=== PATIENT | male | born 1990 | race Caucasian/White ===

== ENCOUNTER 2017-03-10 22:02 | Emergency (ER) | payer SELFPAY ==
[~2017-03-10] VITALS: Ht 182.9 cm; Wt 137.0 kg
--- OUTSIDE RECORDS SUMMARY | 2017-03-10 22:31 | External Medical Summary Rpt ---
Demographics Home Phone Preferred Language Tamazight Marital Status Unknown Judaism Affiliation Unknown Race Unknown Ethnic Group Unknown Author Author , Organization [employer] Address Unknown Phone Unavailable Care Team Providers Care Inspector Crystal Name Role Phone BRANDSER JIMENA, Unavailable Unavailable BRANDSER JIMENA [facility] Unavailable Unavailable PHYSICIANS, [facility] DAVREN JIMENA, DAVREN Unavailable Unavailable JIMENA EMERY THEE, EMERY THEE Unavailable Unavailable [facility] & Unavailable Unavailable ASTHMA, [facility] ASTHMA FAVIER MICHEL, FAVIER Unavailable Unavailable MICHEL FRANXMAN VIDYA, Unavailable Unavailable FRANXMAN VIDYA HIRA JESSE, Unavailable Unavailable HIRA JESSE BRIDGETTE JUDD, BRIDGETTE Unavailable Unavailable JUDD HERFEL DARREL, HERFEL Unavailable Unavailable DARREL KLEIMEYER SAMANTHA, Unavailable Unavailable KLEIMEYER SAMANTHA KOSCIK KATTY, KOSCIK Unavailable Unavailable KATTY FRANCI TUS, FRANCI Unavailable Unavailable TUS WEN BRA, WEN Unavailable Unavailable BRA RAFA ANA CRISTINA, RAFA Unavailable Unavailable ANA CRISTINA ANJU M, ANJU M Unavailable Unavailable [facility] Unavailable Unavailable [facility], [facility] SHREE ZACHERY, Unavailable Unavailable SHREE ZACHERY [facility] Unavailable Unavailable [facility] Unavailable Unavailable PHYSICIANS, [facility] MAGDALENA MCELROY, MAGDALENA Unavailable Unavailable NAVI WELLS SEA, WELLS SEA Unavailable Unavailable Purpose Continuity of Care Document - 11-14-2014 through 2016 Problems Code Diagnosis DOS Provider Status [id number] EFFUSION 03-15-2016 [facility] RIGHT KNEE [facility] [id number] EFFUSION 03-15-2016 [facility] LEFT KNEE [facility] [id number] PAIN IN 03-15-2016 [facility] H49021 PAIN IN 03-15-2016 [facility] LEFT KNEE [facility] K80190 UNSPECIFIED 11-27-2015 ASTHMA SAVANNAH UNCOMPLICAT FT [place] ED K219 GASTRO-ESOP 11-27-2015 [facility] REFLUX SAVANNAH DISEASE FT [place] WITHOUT ESOPHAGITIS R90264 PAIN IN 11-27-2015 RIGHT [place] SHOULDER FT [facility] [id number] SPRAIN RT 11-27-2015 ROTATOR [place] CUFF FT [place] CAPSULE INITIAL ENCOUNTER H6981 OTHER SPEC 11-08-2015 ST DISORDERS SAV[facility]NA[facility] EUSTACHIAN PHYSICIANS TUBE RT EAR H938X1 OTHER 11-08-2015 ST SPECIFIED [facility] DISORDERS PHYSICIANS OF RIGHT EAR H748X1 OTHER SPEC 10-18-2015 [facility] DISORDERS EMERGENCY OF RT PHYSICIANS MIDDLE EAR & MASTOID J301 ALLERGIC 10-03-2015 FAMILY RHINITIS ALLERGY & DUE TO ASTHMA POLLEN J3089 OTHER 10-03-2015 FAMILY ALLERGIC ALLERGY & RHINITIS ASTHMA J4540 MODERATE 09-27-2015 FAMILY PERSISTENT ALLERGY & ASTHMA ASTHMA UNCOMPLICAT ED [id number] ADVERS EFF 09-27-2015 FAMILY OTH RX MEDS ALLERGY & BIO ASTHMA SUBSTANCES INIT ENC J029 ACUTE 09-21-2015 PHARYNGITIS [facility]ICIANS UNSPECIFIED J069 ACUTE UPPER 09-21-[address] [facility] RESPIRATORY PHYSICIANS INFECTION UNSPECIFIED 64846 ASTHMA, 06-05-2015 ST UNSPECIFIED SAVANNAH , FT [facility] UNSPECIFIED STATUS 67985 ESOPHAGEAL 06-05-2015 ST REFLUX SAVANNAH FT [place] 14970 PAIN IN 06-05-2015 JOINT SAVANNAH PELVIC FT [place] REGION AND THIGH V5869 LONG-TERM 06-05-2015 ST (CURRENT) SAVANNA[facility] USE OF FT [place] OTHER MEDICATIONS 4659 ACUTE URIS 05-23-2015 [facility] OF [facility] UNSPECIFIED OF [facility] SITE 7862 COUGH 05-23-2015 ST SAVANNAH FT [place] 7821 RASH AND 05-10-2015 ST OTHER SAV[facility]NA[facility] NONSPECIFIC FT [place] SKIN ERUPTION 44768 UNSPECIFIED 03-24-2015 ST SAVANNAH CONSTIPATIO FT [place] N 07194 ABDOMINAL 03-24-2015 RADIOLOGY PAIN, ASSOCIATES UNSPECIFIED [facility] SITE 56299 ABDOMINAL 03-24-2015 PAIN, SAVANNAH EPIGASTRIC FT [facility] 8830 OPEN WOUND 03-05-2015 ST FINGER SAVANNAH WITHOUT FT [place] MENTION COMPLICATIO N 5589 OTH&UNSPEC 03-02-2015 NONINFECTIO SAVANNAH US FT [place] GASTROENTER ITIS&COLITI S 76655 NAUSEA WITH 03-02-2015 [facility] VOMITING [facility] 00356 DIARRHEA 03-02-2015 [facility] 4739 UNSPECIFIED 01-10-2015 [facility] SINUSITIS EMERGENCY PHYSICIANS 490 BRONCHITIS 01-10-2015 [facility] NOT EMERGENCY SPECIFIED PHYSICIANS ACUTE OR CHRONIC 26804 PAIN IN 11-24-2014 ST JOINT, SAVANNAH LOWER LEG PHYSICIANS V2509 OT GENERAL 11-24-2014 [facility] CNSL&ADVICE PHYSICIANS CONTRACEPT MANAGEMENT 8449 SPRAIN&STRA 11-14-2014 ST IN OF SAVANNAH UNSPECIFIED FT [facility] SITE OF KNEE&LEG 68851 UNSPECIFIED 11-14-2014 SITE OF SAVANNAH ANKLE FT [facility] SPRAIN AND STRAIN J40 Bronchitis, not specified as acute or chronic M25.511 Pain in right shoulder Immunization Name Date Route CVX Reacti Commen Provid Is Given on t er Refuse d TDAP No VACCIN 2014 ELIZAB E 7 ETH FT YRS/> IM [place] Procedures Procedure DOS Code Location Performer Comment RADIOLOGI 59876 RADIOLOGY RAFA Libertad EXAM 6 ANA CRISTINA KNEE ASSOCIATE COMPLETE S OF NOTH 4/MORE VIEWS INJECTION J1885 [facility] 6 SAVANNAH BABINTH KETOROLAC FT FT [facility] TROMETHAM INE PER 15 MG THERAPEUT 18436 [facility] IC 6 [place] SAVANNAH PROPHYLAC FT FT TIC/DX [facility] INJECTION SUBQ/IM PREPJ& 04364 FAMILY CORTES ALLERGEN 5 ALLERGY & VIDYA IMMUNOTHE ASTHMA RAPY 1/PATTERN ATTENDANT ANTIGEN NITRIC 68534 FAMILY CORTES OXIDE 5 ALLERGY & VIDYA ASTHMA GAS DETERMINA TION DEMO&/CECILIA 69049 FAMILY CORTES L OF PT 5 ALLERGY & VIDYA UTILIZ ASTHMA AERSL GEN/NEB/I NHLR/IP PERCUTANE 97443 FAMILY CORTES OUS TESTS 5 ALLERGY & VIDYA ASTHMA W/ALLERGE DREW EXTRACTS BRNCDILAT 62739 FAMILY CORTES RSPSE 5 ALLERGY & VIDYA SPMTRY ASTHMA PRE&POST- BRNCDILAT ADMN SPACR A4627 FAMILY CORTES BAG/RESRV 5 ALLERGY & VIDYA OR W/WO ASTHMA MASK W/METRD DOSE INHAL RADIOLOGI 66857 RADIOLOGY SEAN C 5 JIMENA EXAMINATI ASSOCIATE ON PELVIS S OF NOTH 1/2 VIEWS RADEX HIP 28502 RADIOLOGY YAREDSER 5 JIMENA UNILATERA ASSOCIATE L S OF NOTH COMPLETE MINIMUM 2 VIEWS RADIOLOGI 11387 RADIOLOGY FRANCI C EXAM 5 TUS CHEST 2 ASSOCIATE VIEWS S [facility] FRONTAL&L ATERAL HEPATIC 31552 [facility] FUNCTION 5 SAVANNAH SAVANNAH PANEL FT FT [facility] PATIÑO URNLS DIP 04222 [facility] 5 SAVANNAH SAVANNAH STICK/TAB FT FT LET [facility] PATIÑO REAGENT AUTO MICROSCOP Y BLOOD 50676 [facility] COUNT 5 SAVANNAH SAVANNAH COMPLETE FT FT AUTOMATED [place] [address] [facility] LIPASE 5 SAVANNAH SAVANNAH FT FT [facility] PATIÑO RADEX ABD 44843 [facility] [place] [facility] COMPL 5 AQT ABD ASSOCIATE W/S/E/D S [facility] VIEWS 1 VIEW CH BASIC 74355 [facility] METABOLIC 5 SAVANNAH SAVANNAH PANEL FT FT CALCIUM [facility] TOTAL COLLECTIO 35762 [facility] N VENOUS 5 SAVANNAHRYANNE GOMEZBETH BLOOD FT FT VENIPUNCT [facility] PATIÑO URE TDAP 52005 [facility] VACCINE 7 5 SAVANNAH SAVANNAH YRS/> IM FT FT [facility] PATIÑO INJECTION J1980 [facility] 5 SAVANNAH SAVANNAH HYOSCYAMI FT FT NE [facility] HAROON SULFATE [place] [address] [place] [address] RADIOLOGY [place] ABDOMEN & 5 BRA PELVIS ASSOCIATE W/CONTRAS S OF [facility] T MATERIAL RADIOLOGI 35126 [facility]Y [facility] C EXAM 5 SAMANTHA CHEST 2 ASSOCIATE VIEWS S OF [facility] FRONTAL&L ATERAL RADIOLOGI 25538 [facility] C EXAM 5 SAVANNAH SAVANNAH KNEE FT FT COMPLETE [facility] PATIÑO 4/MORE VIEWS RADEX 97615 [facility] ANKLE 5 SAVANNAH SAVANNAH COMPLETE FT FT MINIMUM 3 [facility] PATIÑO VIEWS Encounters Encounter Start End Date Code Location Performer Type Date HOSPITAL ST - 6 6 SAVANNA[facility] OUTPATIEN FT T [facility] [address] ST 6 6 SAVANNAH DEPARTMEN FT T VISIT [facility] MODERATE SEVERITY EMERGENCY 99342 [facility] FAVIER 6 6 EMERGENCY MCIHEL DEPARTMEN T VISIT PHYSICIAN HIGH/URGE S NT SEVERITY OFFICE 17198 ST ANGELES OUTPATIEN 6 6 SAVANNAH JUDD T VISIT 25 PHYSICIAN MINUTES S EMERGENCY 57921 [facility] ROSHANREN 5 5 EMERGENCY JIMENA DEPARTMEN T VISIT PHYSICIAN HIGH/URGE S NT SEVERITY OFFICE 07623 FAMILY CORTES OUTPATIEN 5 5 ALLERGY & VIDYA T NEW 45 ASTHMA MINUTES OFFICE 04127 ANJU Hawkins OUTPATIEN 5 5 SAVANNAH T VISIT 25 PHYSICIAN MINUTES S [facility] - 5 5 SAVANNAH OUTPATIEN FT T [facility] EMERGENCY 71975 [facility] MAGDALENA 5 5 EMERGENCY NAVI DEPARTMEN T VISIT PHYSICIAN HIGH/URGE S NT SEVERITY EMERGENCY 81428 ST 5 5 SAVANNAH DEPARTMEN FT T VISIT [place] MODERATE SEVERITY HOSPITAL ST - 5 5 SAVANNAH OUTPATIEN FT T [facility] EMERGENCY 30698 [facility] ADÁN [place] 5 5 EMERGENCY DEPARTMEN T VISIT PHYSICIAN HIGH/URGE S NT SEVERITY EMERGENCY 64353 ST 5 5 SAVANNAH DEPARTMEN FT T VISIT [facility] MODERATE SEVERITY EMERGENCY 78418 ST 5 5 SAVANNAH DEPARTMEN FT T VISIT [facility] LOW/MODER SEVERITY HOSPITAL ST - 5 5 SAVANNAH OUTPATIEN FT T [facility] EMERGENCY 79330 [facility] ROSHANREN 5 5 EMERGENCY JIMENA DEPARTMEN T VISIT PHYSICIAN MODERATE S SEVERITY HOSPITAL ST - 5 5 SAVANNAH OUTPATIEN FT T [facility] EMERGENCY 08730 [facility] JHON 5 5 EMERGENCY KATTY DEPARTMEN T VISIT PHYSICIAN HIGH/URGE S NT SEVERITY EMERGENCY 92149 [facility] SHREE 5 5 EMERGENCY ZACHERY DEPARTMEN T VISIT PHYSICIAN MODERATE S SEVERITY HOSPITAL ST - 5 5 SAVANNAH VALLES T [facility] EMERGENCY 72175 5 5 SAVANNAH [facility] T VISIT [facility] LOW/MODER SEVERITY EMERGENCY 47721 YAAKOV REILLYFEL [address] [facility] T VISIT PHYSICIAN HIGH/URGE S NT SEVERITY HOSPITAL ST - 5 5 SAVANNAH VALLES T [facility] EMERGENCY 09184 YAAKOV MAGDALENA [address] [facility] T VISIT PHYSICIAN HIGH/URGE S NT SEVERITY OFFICE 63657 [facility] 5 5 SAVANNAH [facility] VISIT 15 PHYSICIAN MINUTES S [facility] 5 5 SAVANNAH VALLES [facility]
--- OUTSIDE RECORDS SUMMARY | 2017-03-10 22:31 | External Medical Summary Rpt ---
Demographics Home Phone Preferred Language Vietnamese Marital Status Unknown Worship Affiliation Unknown Race Unknown Ethnic Group Unknown Author Author , Organization [employer] Address Unknown Phone Unavailable Care Team Providers Care Bone Cooking Operator Name Role Phone BRANDSER JIMENA, Unavailable Unavailable BRANDSER JIMENA [facility] Unavailable Unavailable PHYSICIANS, [facility] DAVREN JIMENA, DAVREN Unavailable [...] Unavailable Unavailable [facility] Unavailable Unavailable [facility], [facility] SHREE ZACHERY, Unavailable Unavailable SHREE ZACHERY [facility] Unavailable Unavailable [facility] Unavailable PHYSICIANS, [facility] MAGDALENA MCELROY, MAGDALENA Unavailable Unavailable NAVI WELLS SEA, WELLS SEA Unavailable Unavailable Purpose Continuity of Care Document - 11-14-2014 through 2016 Problems Code Diagnosis DOS Provider Status [id number] EFFUSION 03-15-2016 [facility]EE [facility] [id number] EFFUSION 03-15-2016 RADIOLOGY LEFT KNEE [facility] A31296 PAIN IN 03-15-2016 [facility] V40474 PAIN IN 03-15-2016 [facility]EE [facility] Y77110 UNSPECIFIED 11-27-2015 ASTHMA SAVANNAH UNCOMPLICAT FT [place] ED K219 GASTRO-ESOP 11-27-2015 [facility] REFLUX SAVANNAH DISEASE FT [place] WITHOUT ESOPHAGITIS H44115 PAIN IN 11-27-2015 RIGHT [place] SHOULDER FT [facility] O82088D SPRAIN RT 11-27-2015 ROTATOR [place] CUFF FT [place] CAPSULE INITIAL ENCOUNTER H6981 OTHER SPEC 11-08-2015 [...] PERSISTENT ALLERGY & ASTHMA ASTHMA UNCOMPLICAT ED [id number] ADVERS EFF 09-27-2015 FAMILY OTH RX MEDS ALLERGY & BIO ASTHMA SUBSTANCES INIT ENC J029 ACUTE 09-21-2015 PHARYNGITIS SAV[facility] PHYSICIANS UNSPECIFIED J069 ACUTE UPPER 09-21-2015 [facility] RESPIRATORY PHYSICIANS INFECTION UNSPECIFIED 00185 ASTHMA, 06-05-2015 ST UNSPECIFIED SAVANNAH , FT [place] UNSPECIFIED STATUS 60948 ESOPHAGEAL 06-05-2015 ST REFLUX SAVANNAH FT [place] 08620 PAIN IN 06-05-2015 JOINT SAVANNAH PELVIC FT [place] REGION AND THIGH V5869 LONG-TERM 06-05-2015 ST (CURRENT) SAVANNAH USE OF FT [place] OTHER MEDICATIONS 4659 ACUTE URIS 05-23-2015 RADIOLOGY OF [facility]OC[facility]ATES UNSPECIFIED [facility] SITE 7862 COUGH 05-23-2015 ST SAVANNAH FT [place] 7821 RASH AND 05-10-2015 ST OTHER SAV[facility] NONSPECIFIC FT [place] SKIN ERUPTION 30521 UNSPECIFIED 03-24-2015 ST SAVANNAH CONSTIPATIO FT [place] N 82739 ABDOMINAL 03-24-2015 RADIOLOGY PAIN, ASSOC[facility] UNSPECIFIED [facility] SITE 48671 ABDOMINAL 03-24-2015 PAIN, SAVANNAH EPIGASTRIC FT [place] 8830 OPEN WOUND 03-05-2015 ST FINGER SAVANNAH WITHOUT FT [place] MENTION COMPLICATIO N 5589 OTH&UNSPEC 03-02-2015 NONINFECTIO SAVANNAH US FT [place] GASTROENTER ITIS&COLITI S 59115 NAUSEA WITH 03-02-2015 RAD[facility]OLOGY VOMITING [facility] 02265 DIARRHEA 03-02-2015 [facility] 4739 UNSPECIFIED 01-10-2015 [facility] SINUSITIS EMERGENCY PHYSICIANS 490 BRONCHITIS 01-10-2015 [facility] NOT EMERGENCY SPECIFIED PHYSICIANS ACUTE OR CHRONIC 22844 PAIN IN 11-24-2014 ST JOINT, SAVANNAH LOWER LEG PHYSICIANS V2509 OT GENERAL 11-24-2014 S[facility] CNSL&ADVICE PHYSICIANS CONTRACEPT MANAGEMENT 8449 SPRAIN&STRA 11-14-2014 ST IN OF SAVANNAH UNSPECIFIED FT [place] SITE OF KNEE&LEG 17550 UNSPECIFIED 11-14-2014 SITE OF SAVANNAH ANKLE FT [facility] SPRAIN AND STRAIN J40 Bronchitis, not specified as acute or chronic M25.511 Pain in right shoulder Immunization Name Date Route CVX Reacti Commen Provid Is Given on t er Refuse d TDAP No VACCIN 2014 ELIZAB E 7 ETH FT YRS/> IM [place] Procedures Procedure DOS Code Location Performer Comment RADIOLOGI 23873 RADIOLOGY RAFA [facility] EXAM 6 ANA CRISTINA KNEE ASSOCIATE COMPLETE S OF NOTH 4/MORE VIEWS INJECTION J1885 [facility] 6 SAVANNAH BABINTH KETOROLAC FT FT [facility] TROMETHAM INE PER 15 MG THERAPEUT 65078 [facility] IC 6 [place] SAVANNAH PROPHYLAC FT FT TIC/DX [facility] INJECTION SUBQ/IM PREPJ& 96759 FAMILY CORTES ALLERGEN 5 ALLERGY & VIDYA IMMUNOTHE ASTHMA RAPY 1/JIRA DEVELOPER ANTIGEN NITRIC 97416 FAMILY CORTES OXIDE 5 ALLERGY & VIDYA ASTHMA GAS DETERMINA TION DEMO&/CECILIA 55565 FAMILY CORTES L OF PT 5 ALLERGY & VIDYA UTILIZ ASTHMA AERSL GEN/NEB/I NHLR/IP PERCUTANE 77235 FAMILY CORTES OUS TESTS 5 ALLERGY & VIDYA ASTHMA W/ALLERGE DREW EXTRACTS BRNCDILAT 47201 [facility]ORTES RSPSE 5 ALLERGY & VIDYA SPMTRY ASTHMA PRE&POST- BRNCDILAT ADMN SPACR A4627 FAMILY CORTES BAG/RESRV 5 ALLERGY & VIDYA OR W/WO ASTHMA MASK W/METRD DOSE INHAL RADIOLOGI 12118 RADIOLOGY SEAN C 5 JIMENA EXAMINATI ASSOCIATE ON PELVIS S OF NOTH 1/2 VIEWS RADEX HIP 47525 RADIOLOGY YAREDSER 5 JIMENA UNILATERA ASSOCIATE L S OF NOTH COMPLETE MINIMUM 2 VIEWS RADIOLOGI 14423 RADIOLOGY FRANCI C EXAM 5 TUS CHEST 2 ASSOCIATE VIEWS S OF [facility] FRONTAL&L ATERAL HEPATIC 26369 [facility] FUNCTION 5 SAVANNAH SAVANNAH PANEL FT FT [place] PATIÑO URNLS DIP 25184 [facility] 5 SAVANNAH SAVANNAH STICK/TAB FT FT LET [facility] PATIÑO REAGENT AUTO MICROSCOP Y BLOOD 10818 [facility] COUNT 5 SAVANNAH SAVANNAH COMPLETE FT FT [place]OMATED [place] [address] [facility] LIPASE 5 SAVANNAH SAVANNAH FT FT [place] PATIÑO RADEX ABD 85451 [facility] [place] SE[facility] COMPL 5 AQT ABD ASSOCIATE W/S/E/D S [facility] VIEWS 1 VIEW CH BASIC 14259 [facility] METABOLIC 5 SAVANNAH SAVANNAH PANEL FT FT CALCIUM [facility] TOTAL COLLECTIO 98441 [facility] N VENOUS 5 SAVANNAHRYANNE GOMEZBETH BLOOD FT FT VENIPUNCT [facility] PATIÑO URE TDAP 39002 [facility] VACCINE 7 5 SAVANNAH SAVANNAH YRS/> IM FT FT [facility] PATIÑO INJECTION J1980 [facility] 5 SAVANNAH SAVANNAH HYOSCYAMI FT FT NE HARO[facility] HAROON SULFATE UP [place] [address] [place] [address] RADIOLOGY [place] ABDOMEN & 5 BRA PELVIS ASSOCIATE W/CONTRAS S [facility] T MATERIAL RADIOLOGI 51467 RADIOLOGY [facility] C EXAM 5 SAMANTHA CHEST 2 ASSOCIATE VIEWS S OF [facility] FRONTAL&L ATERAL RADIOLOGI 18230 [facility] C EXAM 5 SAVANNAH SAVANNAH KNEE FT FT COMPLETE [facility] PATIÑO 4/MORE VIEWS RADEX 67057 [facility] ANKLE 5 SAVANNAH SAVANNAH COMPLETE FT FT MINIMUM 3 [facility] PATIÑO VIEWS Encounters Encounter Start End Date Code Location Performer Type Date HOSPITAL ST - 6 6 SAVANNAH OUTPATIEN FT T [facility] EMERGENC[facility] [address] ST 6 6 SAVANNAH DEPARTMEN FT T VISIT [facility] MODERATE SEVERITY EMERGENCY 80376 [facility] FAVIER 6 6 EMERGENCY MICHEL DEPARTMEN T VISIT PHYSICIAN HIGH/URGE S NT SEVERITY OFFICE 88168 ST ANGELES OUTPATIEN 6 6 SAVANNAH JUDD T VISIT 25 PHYSICIAN MINUTES S EMERGENCY 94720 [facility] ROSHANREN 5 5 EMERGENCY JIMENA DEPARTMEN T VISIT PHYSICIAN HIGH/URGE S NT SEVERITY OFFICE 16247 FAMILY CORTES OUTPATIEN 5 5 ALLERGY & VIDYA T NEW 45 ASTHMA MINUTES OFFICE 19333 ANJU Hawkins OUTPATIEN 5 5 SAVANNAH T VISIT [address] PHYSIC[address] S [facility] - 5 5 SAVANNAH OUTPATIEN FT T [facility] EMERGENCY 91783 [facility] MAGDALENA 5 5 EMERGENCY NAVI DEPARTMEN T VISIT PHYSICIAN HIGH/URGE S NT SEVERITY EMERGENCY 29848 ST 5 5 SAVANNHA DEPARTMEN FT T VISIT [place] MODERATE SEVERITY HOSPITAL ST - 5 5 SAVANNAH OUTPATIEN FT T [facility] EMERGENCY 84171 [facility] ADÁN [place] 5 5 EMERGENCY DEPARTMEN T VISIT PHYSICIAN HIGH/URGE S NT SEVERITY EMERGENCY 07196 ST 5 5 SAVANNAH DEPARTMEN FT T VISIT [facility] MODERATE SEVERITY EMERGENCY 12207 ST 5 5 SAVANNAH DEPARTMEN FT T VISIT [facility] LOW/MODER SEVERITY HOSPITAL ST - 5 5 SAVANNAH OUTPATIEN FT T [facility] EMERGENCY 37897 [facility] ROSHANREN 5 5 EMERGENCY JIMENA DEPARTMEN T VISIT PHYSICIAN MODERATE S SEVERITY HOSPITAL ST - 5 5 SAVANNAH OUTPATIEN FT T [facility] EMERGENCY 86627 [facility] JHON 5 5 EMERGENCY KATTY DEPARTMEN T VISIT PHYSICIAN HIGH/URGE S NT SEVERITY EMERGENCY 64384 [facility] SHREE 5 5 EMERGENCY ZACHERY DEPARTMEN T VISIT PHYSICIAN MODERATE S SEVERITY HOSPITAL ST - 5 5 SAVANNAH VALLES T [facility] EMERGENCY 80308 5 5 SAVANNAH [facility] T VISIT [facility] LOW/MODER SEVERITY EMERGENCY 84213 YAAKOV REILLYFEL 5 5 EMERGENCY DARREL [facility] T VISIT PHYSICIAN HIGH/URGE S NT SEVERITY HOSPITAL ST - 5 5 SAVANNAH VALLES T [facility] EMERGENCY 05068 YAAKOV MAGDALENA 5 5 EMERGENCY NAVI [facility] T VISIT PHYSICIAN HIGH/URGE S NT SEVERITY OFFICE 17323 [facility] 5 5 [facility] V[facility] 15 PHYSICIAN MINUTES S [facility] 5 5 SAVANNAH VALLES [facility]
--- OUTSIDE RECORDS SUMMARY | 2017-03-10 22:32 | External Medical Summary Rpt ---
Demographics Preferred Language Estonian Marital Status Unknown Sikh Affiliation Unknown Race Unknown Ethnic Group Unknown Author Author , Organization [employer] Address Unknown Phone Unavailable Purpose Continuity of Care Document - through 2016 Immunization No patient found.
--- OUTSIDE RECORDS SUMMARY | 2017-03-10 22:32 | External Medical Summary Rpt ---
Author Author , Organization [employer] Address Unknown Phone Unavailable Care Team Providers Care Options Advisor Name Role Phone BRANDSER JIMENA, Unavailable Unavailable BRANDSER JIMENA [facility] Unavailable Unavailable PHYSICIANS, [facility] DAVREN JIMENA, DAVREN Unavailable Unavailable [...] SAMANTHA KOSCIK KATTY, KOSCIK Unavailable Unavailable KATTY WEN BRA, WEN Unavailable Unavailable BRA RAFA ANA CRISTINA, RAFA Unavailable Unavailable ANA CRISTINA ANJU M, ANJU M Unavailable Unavailable [facility] Unavailable Unavailable [facility], [facility] SHREE BINGHAM, Unavailable Unavailable SHREE ZACHERY [facility] Unavailable Unavailable [facility] Unavailable Unavailable PHYSICIANS, [facility] MAGDALENA MCELROY, MAGDALENA Unavailable Unavailable [facility] SE[facility], WELLS SEA Unavailable Unavailable Purpose Continuity of Care Document - 11-14-2014 through 2016 Problems Code Diagnosis DOS Provider Status [id number] EFFUSION 03-15-2016 [facility] RIGHT KNEE [facility] [id number] EFFUSION 03-15-2016 [facility] LEFT KNEE [facility] [id number] PAIN IN 03-15-2016 [facility] H20348 PAIN IN 03-15-2016 [facility] LEFT KNEE [facility] [id number] UNSPECIFIED 11-27-2015 ASTHMA SAVANNAH UNCOMPLICAT FT [facility] ED K219 GASTRO-ESOP 11-27-2015 H REFLUX SAVANNAH DISEASE FT [facility] WITHOUT ESOPHAGITIS [id number] PAIN IN 11-27-2015 RIGHT SAVANNAH SHOULDER FT [facility] [id number] SPRAIN RT 11-27-2015 ROTATOR SAVANNAH CUFF FT [facility] CAPSULE INITIAL ENCOUNTER H6981 OTHER SPEC 11-08-2015 DISORDERS SAVANNAH EUSTACHIAN PHYSICIANS TUBE RT EAR H938X1 OTHER 11-08-2015 ST SPECIFIED SAVANNAH DISORDERS PHYSICIANS OF RIGHT EAR H748X1 OTHER SPEC 10-18-2015 [facility] DISORDERS EMERGENCY OF RT PHYSICIANS MIDDLE EAR & MASTOID J301 ALLERGIC 10-03-2015 FAMILY RHINITIS ALLERGY & DUE TO ASTHMA POLLEN J3089 OTHER 10-03-2015 FAMILY ALLERGIC ALLERGY & RHINITIS ASTHMA J4540 MODERATE 09-27-2015 FAMILY PERSISTENT ALLERGY & ASTHMA ASTHMA UNCOMPLICAT ED [id number] ADVERS EFF 09-27-2015 FAMILY OTH RX MEDS ALLERGY & BIO ASTHMA SUBSTANCES INIT ENC J029 ACUTE 09-21-2015 PHARYNGITIS [facility] PHYSICIANS UNSPECIFIED J069 ACUTE UPPER 09-21-2015 [facility] RESPIRATORY PHYSICIANS INFECTION UNSPECIFIED 58854 ASTHMA, 06-05-2015 ST UNSPECIFIED SAVANNAH , FT [facility] UNSPECIFIED STATUS 30723 ESOPHAGEAL 06-05-2015 ST REFLUX SAVANNAH FT [facility] 55229 PAIN IN 06-05-2015 JOINT SAVANNAH PELVIC FT [facility] REGION AND THIGH V5869 LONG-TERM 06-05-2015 (CURRENT) SAVANNAH USE OF FT [facility] OTHER MEDICATIONS 4659 ACUTE URIS 05-23-2015 [facility] UNSPECIFIED [facility] SITE 7862 COUGH 05-23-2015 ST SAVANNAH FT [facility] 7821 RASH AND 05-10-2015 OTHER SAVANNAH NONSPECIFIC FT [facility] SKIN ERUPTION 73356 UNSPECIFIED 03-24-2015 SAVANNAH CONSTIPATIO FT [facility] N 25890 ABDOMINAL 03-24-2015 RADIOLOGY PAIN, ASS[facility] UNSPECIFIED [facility] SITE 51520 ABDOMINAL 03-24-2015 PAIN, SAVANNAH EPIGASTRIC FT [facility] 8830 OPEN WOUND 03-05-2015 ST FINGER SAVANNAH WITHOUT FT [facility] MENTION COMPLICATIO N 5589 OTH&UNSPEC 03-02-2015 NONINFECTIO SAVANNAH US FT [facility] GASTROENTER ITIS&COLITI S 20917 NAUSEA WITH 03-02-2015 [facility] VOMITING [facility] 97405 DIARRHEA 03-02-2015 [facility] 4739 UNSPECIFIED 01-10-2015 [facility] SINUSITIS EMERGENCY PHYSICIANS 490 BRONCHITIS 01-10-2015 [facility] NOT [facility]ERGENCY SPECIFIED PHYSICIANS ACUTE OR CHRONIC 50721 PAIN IN 11-24-2014 JOINTTALYATH LOWER LEG PHYSICIANS V2509 OTH GENERAL 11-24-2014 [facility] CNSL&ADVICE PHYSICIANS CONTRACEPT MANAGEMENT 8449 SPRAIN&STRA 11-14-2014 ST IN OF SAVANNAH UNSPECIFIED FT [facility] SITE OF KNEE&LEG 67965 UNSPECIFIED 11-14-2014 SITE OF SAVANNAH ANKLE FT [facility] SPRAIN AND STRAIN Immunization Name Date Route CVX Reacti Commen Provid Is Given on t er Refuse d TDAP ST No VACCIN 2015 ELIZAB E 7 ETH FT YRS/> IM [facility] Procedures Procedure DOS Code Location Performer Comment RADIOLOGI 47162 [facility] [place] C EXAM 6 ANA CRISTINA KNEE ASSOCIATE COMPLETE S OF NOTH 4/MORE VIEWS INJECTION J1885 ST 6 SAVANNAH SAVANNAH KETOROLAC FT FT [facility] PATIÑO TROMETHAM INE PER 15 MG THERAPEUT 09690 [facility] IC 6 SAVANNAHHARJIT NUÑEZ PROPHYLAC FT FT TIC/DX [facility] INJECTION SUBQ/IM PREPJ& 37915 FAMILY SEBASTIAN ALLERGEN 5 ALLERGY & VIDYA IMMUNOTHE ASTHMA RAPY 1/NURSE PRN ANTIGEN NITRIC 38785 FAMILY CAITLINNXSELAM OXIDE 5 ALLERGY & VIDYA ASTHMA GAS DETERMINA TION PERCUTANE 24283 FAMILY TUCKERNXSELAM OUS TESTS 5 ALLERGY & VIDYA ASTHMA W/ALLERGE DREW EXTRACTS BRNCDILAT 90389 FAMILY CORTES RSPSE 5 ALLERGY & VIDYA SPMTRY ASTHMA PRE&POST- BRNCDILAT ADMN DEMO&/CECILIA 57098 FAMILY CORTES L OF PT 5 ALLERGY & VIDYA UTILIZ ASTHMA AERSL GEN/NEB/I NHLR/IP SPACR A4627 FAMILY CORTES BAG/RESRV 5 ALLERGY & VIDYA OR W/WO ASTHMA MASK W/METRD DOSE INHAL RADEX HIP 05025 RADIOLOGY BRANDSER 5 JIMENA UNILATERA ASSOCIATE L S OF NOTH COMPLETE MINIMUM 2 VIEWS RADIOLOGI 95706 RADIOLOGY BRANDSER C 5 JIMENA EXAMINATI ASSOCIATE ON PELVIS S OF NOTH 1/2 VIEWS RADIOLOGI 56738 [facility] C EXAM 5 SAVANNAHRYANNE NUÑEZ CHEST 2 FT FT VIEWS [facility]OON FRONTAL&L ATERAL BLOOD 69452 [facility] COUNT 5 SAVANNAH SAVANNAH COMPLETE FT FT AUTOMATED [facility] PATIÑO RADEX ABD 95378 [facility] COMPL 5 AQT ABD ASSOCIATE W/S/E/D S [facility] VIEWS 1 VIEW CH BASIC 14720 [facility] METABOLIC 5 SAVANNAH SAVANNAH PANEL FT FT CALCIUM [place] [address] [facility] LIPASE 5 SAVANNAH SAVANNAH FT FT HAROON HAROON COLLECTIO 64347 [facility] N VENOUS 5 SAVANNAH SAVANNAH BLOOD FT FT VENIPUNCT [facility] PATIÑO URE HEPATIC 69996 [facility] FUNCTION 5 SAVANNAH SAVANNAH PANEL FT FT [place] PATIÑO URNLS DIP 48025 [facility] 5 SAVANNAH SAVANNAH STICK/TAB FT FT LET [facility] PATIÑO REAGENT AUTO MICROSCOP Y TDAP 23426 [facility] VACCINE 7 5 SAVANNAH SAVANNAH YRS/> IM [place] [address] [facility] [place] ABDOMEN & 5 BRA PELVIS ASSOCIATE W/CONTRAS S OF [facility] T MATERIAL INJECTION J1980 [facility] 5 SAVANNAH SAVANNAH HYOSCYAMI FT FT NE [facility] PATIÑO SULFATE UP TO 0.25 MG RADIOLOGI 98040 [facility]OLOGY [facility] C EXAM 5 SAMANTHA CHEST 2 ASSOCIATE VIEWS S OF [facility] FRONTAL&L ATERAL RADIOLOGI 34618 [facility] C EXAM 5 SAVANNAH SAVANNAH KNEE FT FT COMPLETE [facility] PATIÑO 4/MORE VIEWS RADEX 62001 [facility] ANKLE 5 SAVANNAH SAVANNAH COMPLETE FT FT MINIMUM 3 [facility] PATIÑO VIEWS Encounters Encounter Start End Date Code Location Performer Type Date HOSPITAL ST - 6 6 SAVANNAH OUTPATIEN FT T [facility] EMERGENCY 94874 [facility] F[facility] 6 6 EMERGENCY MICHEL DEPARTMEN T VISIT PHYSICIAN HIGH/URGE S NT SEVERITY EMERGENCY 55462 ST 6 6 SAVANNAH DEPARTMEN FT T VISIT [facility] MODERATE SEVERITY OFFICE 75044 ST BRIDGETTE OUTPATIEN 6 6 SAVANNAH JUDD T VISIT 25 PHYSICIAN MINUTES S EMERGENCY 13259 [facility] ROSHANREN 5 5 EMERGENCY JIMENA DEPARTMEN T VISIT PHYSICIAN HIGH/URGE S NT SEVERITY OFFICE 86774 FAMILY SEBASTIAN AMADORPATIEN 5 5 ALLERGY & VIDYA T NEW 45 ASTHMA MINUTES OFFICE 51242 ANJU Hawkins OUTPATIEN 5 5 SAVANNAH T VISIT 25 PHYSICIAN MINUTES S EMERGENCY 47606 ST 5 5 SAVANNAH DEPARTMEN FT T VISIT [place] [facility]ER[facility] SEVERITY [facility] ST - 5 5 SAVANNAH OUTPATIEN FT T [place] [facility] 00827 [facility] MAGDALENA 5 5 EMERGENCY NAVI DEPARTMEN T VISIT PHYSICIAN HIGH/URGE S NT SEVERITY EMERGENCY 25475 ST 5 5 SAVANNAH DEPARTMEN FT T VISIT [place] MODER[facility] SEVERITY [facility] ST - 5 5 SAVANNAH OUTPATIEN FT T [place] [facility] 46900 [facility]N [place] 5 5 EMERGENCY DEPARTMEN T VISIT PHYSICIAN HIGH/URGE S NT SEVERITY HOSPITAL ST - 5 5 SAVANNAH OUTPATIEN FT T [facility] EMERGENCY 50284 ST 5 5 SAVANNAH DEPARTMEN FT T VISIT [facility] LOW/MODER SEVERITY EMERGENCY 70223 [facility] ROSHANREN 5 5 EMERGENCY JIMENA DEPARTMEN T VISIT PHYSICIAN MODERATE S SEVERITY HOSPITAL ST - 5 5 SAVANNAH OUTPATIEN FT T [facility] EMERGENCY 02677 [facility] JHON 5 5 EMERGENCY KATTY DEPARTMEN T VISIT PHYSICIAN HIGH/URGE S NT SEVERITY EMERGENCY 86135 ST 5 5 SAVANNAH DEPARTMEN FT T VISIT [facility] LOW/MODER SEVERITY EMERGENCY 07050 [facility] SHREE 5 5 EMERGENCY ZACHERY DEPARTMEN T VISIT PHYSICIAN MODERATE S SEVERITY HOSPITAL ST - 5 5 SAVANNAH VALL[facility] EMERGENCY 99435 [facility] FEL 5 5 EMERGENCY DARREL DEPARTMEN T VISIT PHYSICIAN HIGH/URGE S [facility] - 5 5 SAVANNAH VALL[facility] EMERGENCY 38365 [facility] MAGDALENA 5 5 EMERGENCY NAVI DEPARTMEN T VISIT PHYSICIAN HIGH/URGE S [facility] OFFICE 17455 [facility] 5 5 SAVANNAH [facility] VISIT 15 PHYSICIAN MINUTES [facility] [place] 5 SAVANNAH VALLES
--- OUTSIDE RECORDS SUMMARY | 2017-03-10 22:32 | External Medical Summary Rpt ---
Author Author , Organization [employer] Address Unknown Phone Unavailable Care Team Providers Care Park Landscape Architect Name Role Phone BRANDSER JIMENA, Unavailable Unavailable [...] HE[facility], [facility] SHREE BINGHAM, Unavailable Unavailable SHREE ZACHERY [facility] Unavailable Unavailable [facility], [facility] Unavailable Unavailable PHYSICIANS, [facility] MAGDALENA MCELROY, MAGDALENA Unavailable Unavailable [facility] SE[facility], WELLS SEA Unavailable Unavailable Purpose Continuity of Care Document - 11-14-2014 through 2016 Problems Code Diagnosis DOS Provider Status [id number] EFFUSION 03-15-2016 [facility] G74379 EFFUSION 03-15-2016 [facility] G51146 PAIN IN 03-15-2016 [facility] I78597 PAIN IN 03-15-2016 [facility] V96195 UNSPECIFIED 11-27-2015 ASTHMA SAVANNAH UNCOMPLICAT FT [facility] ED K219 GASTRO-ESOP 11-27-2015 H REFLUX SAVANNAH DISEASE FT [facility] WITHOUT ESOPHAGITIS A86825 PAIN IN 11-27-2015 RIGHT SAVANNAH SHOULDER FT [facility] [id number] SPRAIN RT 11-27-2015 ROTATOR SAVANNAH CUFF FT [...] PERSISTENT ALLERGY & ASTHMA ASTHMA UNCOMPLICAT ED W15724O ADVERS EFF 09-27-2015 FAMILY OTH RX MEDS ALLERGY & BIO ASTHMA SUBSTANCES INIT ENC J029 ACUTE 09-21-2015 PHARYNGITIS SAV[facility]H PHYSICIANS UNSPECIFIED J069 ACUTE UPPER 09-21-2015 [facility] RESPIRATORY PHYSICIANS INFECTION UNSPECIFIED 71453 ASTHMA, 06-05-2015 ST UNSPECIFIED SAVANNAH , FT [facility] UNSPECIFIED STATUS 49045 ESOPHAGEAL 06-05-2015 ST REFLUX SAVANNAH FT [facility] 95530 PAIN IN 06-05-2015 JOINT SAVANNAH PELVIC FT [facility] REGION AND THIGH V5869 LONG-TERM 06-05-2015 (CURRENT) SAVANNAH USE OF FT [facility] OTHER MEDICATIONS 4659 ACUTE URIS 05-23-2015 [facility] UNSPECIFIED [facility] SITE 7862 COUGH 05-23-2015 ST SAVANNAH FT [facility] 7821 RASH AND 05-10-2015 OTHER SAVANNAH NONSPECIFIC FT [facility] SKIN ERUPTION 86827 UNSPECIFIED 03-24-2015 SAVANNAH CONSTIPATIO FT A[facility] N 28013 ABDOMINAL 03-24-2015 RADIOLOGY PAIN, ASSOC[facility] UNSPECIFIED [facility] SITE 72811 ABDOMINAL 03-24-2015 PAIN, SAVANNAH EPIGASTRIC FT [facility] 8830 OPEN WOUND 03-05-2015 ST FINGER SAVANNAH WITHOUT FT [facility] MENTION COMPLICATIO N 5589 OTH&UNSPEC 03-02-2015 NONINFECTIO SAVANNAH US FT [facility] GASTROENTER ITIS&COLITI S 64242 NAUSEA WITH 03-02-2015 [facility] VOMITING [facility] 83476 DIARRHEA 03-02-2015 [facility] 4739 UNSPECIFIED 01-10-2015 [facility] SINUSITIS EMERGENCY PHYSICIANS 490 BRONCHITIS 01-10-2015 [facility] NOT EMERGENCY SPECIFIED PHYSICIANS ACUTE OR CHRONIC 47106 PAIN IN 11-24-2014 JOINTTALYATH LOWER LEG PHYSICIANS V2509 OTH GENERAL 11-24-2014 [facility] CNSL&ADVICE PHYSICIANS CONTRACEPT MANAGEMENT 8449 SPRAIN&STRA 11-14-2014 ST IN OF SAVANNAH UNSPECIFIED FT [facility] SITE OF KNEE&LEG 73930 UNSPECIFIED 11-14-2014 SITE OF SAVANNAH ANKLE FT [facility] SPRAIN AND STRAIN Immunization Name Date Route CVX Reacti Commen Provid Is Given on t er Refuse d TDAP ST No VACCIN 2015 ELIZAB E 7 ETH FT YRS/> IM [facility] Procedures Procedure DOS Code Location Performer Comment RADIOLOGI 94648 [facility] [place] C EXAM 6 ANA CRISTINA KNEE ASSOCIATE COMPLETE S OF NOTH 4/MORE VIEWS INJECTION J1885 ST 6 SAVANNAH SAVANNAH KETOROLAC FT FT [facility] PATIÑO TROMETHAM INE PER 15 MG THERAPEUT 89446 [facility] IC 6 SAVANNAHHARJIT NUÑEZ PROPHYLAC FT FT TIC/DX HARO[facility] INJECTION SUBQ/IM PREPJ& 21122 FAMILY SEBASTIAN ALLERGEN 5 ALLERGY & VIDYA IMMUNOTHE ASTHMA RAPY 1/TAILMAN ANTIGEN NITRIC 34169 FAMILY CAITLINNXSELAM OXIDE 5 ALLERGY & VIDYA ASTHMA GAS DETERMINA TION PERCUTANE 41430 FAMILY TUCKERNXSELAM OUS TESTS 5 ALLERGY & VIDYA ASTHMA W/ALLERGE DREW EXTRACTS BRNCDILAT 79654 FAMILY CORTES RSPSE 5 ALLERGY & VIDYA SPMTRY ASTHMA PRE&POST- BRNCDILAT ADMN DEMO&/CECILIA 79318 FAMILY CORTES L OF PT 5 ALLERGY & VIDYA UTILIZ ASTHMA AERSL GEN/NEB/I NHLR/IP SPACR A4627 FAMILY CORTES BAG/RESRV 5 ALLERGY & VIDYA OR W/WO ASTHMA MASK W/METRD DOSE INHAL RADEX HIP 25144 RADIOLOG[facility] BRANDSER 5 JIMENA UNILATERA ASSOCIATE L S OF NOTH COMPLETE MINIMUM 2 VIEWS RADIOLOGI 89145 RADIOLOGY BRANDSER C 5 JIMENA EXAMINATI ASSOCIATE ON PELVIS S OF NOTH 1/2 VIEWS RADIOLOGI 22880 [facility] C EXAM 5 SAVANNAHRYANNE NUÑEZ CHEST 2 FT FT VIEWS [facility] FRONTAL&L ATERAL BLOOD 09872 [facility] COUNT 5 SAVANNAH SAVANNAH COMPLETE FT FT AUTOMATED [facility] PATIÑO RADEX ABD 45579 [facility] COMPL 5 AQT ABD ASSOCIATE W/S/E/D S [facility] VIEWS 1 VIEW CH BASIC 72641 [facility] METABOLIC 5 SAVANNAH SAVANNAH PANEL FT FT CALCIUM [place] [address] [facility] LIPASE 5 SAVANNAH SAVANNAH FT FT [facility] COLLECTIO 97504 [facility] N VENOUS 5 SAAVNNAH SAVANNAH BLOOD FT FT VENIPUNCT [facility] PATIÑO URE HEPATIC 81217 [facility] FUNCTION 5 SAVANNAH SAVANNAH PANEL FT FT [place] PATIÑO URNLS DIP 49645 [facility] 5 SAVANNAH SAVANNAH STICK/TAB FT FT LET [facility] PATIÑO REAGENT AUTO MICROSCOP Y TDAP 89506 [facility] VACCINE 7 5 SAVANNAH SAVANNAH YRS/> IM FT [place] [address] RADIOLOGY [place] ABDOMEN & 5 BRA PELVIS ASSOCIATE W/CONTRAS S [facility] T MATERIAL INJECTION J1980 [facility] 5 SAVANNAH SAVANNAH HYOSCYAMI FT FT NE [facility] PATIÑO SULFATE UP TO 0.25 MG RADIOLOGI 29469 RADIOLOGY [facility] C EXAM 5 SAMANTHA CHEST 2 ASSOCIATE VIEWS S OF [facility] FRONTAL&L ATERAL RADIOLOGI 00701 [facility] C EXAM 5 SAVANNAH SAVANNAH KNEE FT FT COMPLETE [facility] PATIÑO 4/MORE VIEWS RADEX 33124 [facility] ANKLE 5 SAVANNAH SAVANNAH COMPLETE FT FT MINIMUM 3 HAR[facility] PATIÑO VIEWS Encounters Encounter Start End Date Code Location Performer Type Date HOSPITAL ST - 6 6 SAVANNAH OUTPATIEN FT T [facility] EMERGENCY 59006 [facility] 6 6 EMERGENCY MICHEL DEPARTMEN T VISIT PHYSICIAN HIGH/URGE S NT SEVERITY EMERGENCY [address]38 ST 6 6 SAVANNAH DEPARTMEN FT T VISIT [facility] MODERATE SEVERITY OFFICE 96068 ST BRIDGETTE OUTPATIEN 6 6 SAVANNAH JUDD T VISIT 25 PHYSICIAN MINUTES S EMERGENCY 80242 [facility] ROSHANREN 5 5 EMERGENCY JIMENA DEPARTMEN T VISIT PHYSICIAN HIGH/URGE S NT SEVERITY OFFICE 67567 FAMILY SEBASTIAN AMADORPATIEN 5 5 ALLERGY & VIDYA T NEW 45 ASTHMA MINUTES OFFICE 66032 ANJU Hawkins OUTPATIEN 5 5 SAVANNAH T VISIT 25 PHYSICIAN MINUTES S EMERGENCY 75526 ST 5 5 SAVANNAH DEPARTMEN FT T VISIT [facility]ER [facility] MODERATE SEVERITY HOSPITAL ST - 5 5 SAVANNAH OUTPATIEN FT T [facility] EMERGENCY 52939 [facility] MAGDALENA 5 5 EMERGENCY NAVI DEPARTMEN T VISIT PHYSICIAN HIGH/URGE S NT SEVERITY EMERGENCY 81742 ST 5 5 SAVANNAH DEPARTMEN FT T VISIT [facility]ER [facility] MODERATE SEVERITY HOSPITAL ST - 5 5 SAVANNAH OUTPATIEN FT T [facility] EMERGENCY 95189 [facility] ADÁN [place] 5 5 EMERGENCY DEPARTMEN T VISIT PHYSICIAN HIGH/URGE S NT SEVERITY HOSPITAL ST - 5 5 SAVANNAH OUTPATIEN FT T [facility] EMERGENCY 80225 ST 5 5 SAVANNAH DEPARTMEN FT T VISIT [facility] LOW/MODER SEVERITY EMERGENCY 27655 [facility] ROSHANREN 5 5 EMERGENCY JIMENA DEPARTMEN T VISIT PHYSICIAN MODERATE S SEVERITY HOSPITAL ST - 5 5 SAVANNAH OUTPATIEN FT T [facility] EMERGENCY 06202 [facility] JHON 5 5 EMERGENCY KATTY DEPARTMEN T VISIT PHYSICIAN HIGH/URGE S NT SEVERITY EMERGENCY 81563 ST 5 5 SAVANNAH DEPARTMEN FT T VISIT [facility] LOW/MODER SEVERITY EMERGENCY 82921 [facility] SHREE 5 5 EMERGENCY ZACHERY DEPARTMEN T VISIT PHYSICIAN MODERATE S SEVERITY HOSPITAL ST - 5 5 SAVANNAH VALLES [facility] EMERGENCY 23855 [facility] FEL 5 5 EMERGENCY DARREL DEPARTMEN T VISIT PHYSICIAN HIGH/URGE S [facility] - 5 5 SAVANNAH VALLES [facility] EMERGENCY 56680 [facility] MAGDALENA 5 5 EMERGENCY NAVI DEPARTMEN T VISIT PHYSICIAN HIGH/URGE S [facility] OFFICE 62391 [facility] 5 5 SAVANNAH [facility] VISIT 15 PHYSICIAN MINUTES [facility] 5 SAVANNAH VALLES [facility]
--- OUTSIDE RECORDS SUMMARY | 2017-03-10 22:32 | External Medical Summary Rpt ---
Demographics Preferred Language Spanish Marital Status Unknown Shinto Affiliation Unknown Race Unknown Ethnic Group Unknown Author Author , Organization [employer] Address Unknown Phone Unavailable Purpose Continuity of Care Document - through 2016 Immunization No patient found.
[2017-03-10] MEDS ORDERED: PREDNISONE 20MG20 MG PO (22:59)
--- NOTE | 2017-03-10 23:00 | Emergency Room Report ---
History of Present Illness Time Seen by [id number] Presenting Problem in Triage Pt arrived:Walked Presenting Problem:PT C/O RIGHT ARM TINLGING AND NUMBNESS, INTERMITTENTLY X 1 WEEK, PT DENIES PAIN IN HIS RIGHT ARM. PT RPTS TINGLING FEELING HAS BEEN MORE PROMINENT AT NIGHT, PT STS "IT FEELS LIKE IT'S ASLEEP NO MATTER HOW I'M LYING." PT RPTS HE FELL ONTO HIS RIGHT ARM 1 YEAR AGO, WAS TOLD HE NEEDED CORTISONE INJECTIONS, BUT HE DID NOT COMPLETE THEM. PT RPTS HE'S HAD THIS PAIN INTERMITTENTLY SINCE THE FALL, HE FELL WHILE PLAYING BALL. Onset of symptoms date/time:/ or onset unknown for:MEDICAL HX UNKNOWN Treatment Prior to Arrival: VIDEO SPECIALIST Provided by: Sepsis Risk Assessment: Temp: 98.0 B/P: 119/68 MAP: 85 Pulse: 80 Resp: 18 Recent fever? N Clinical Suspician of Infection? N Mental Status: 1 - Regular (Normal Baseline) Sepsis Risk:Low Sepsis Risk Have you (or family members/close friends) recently traveled outside the [place]? N If Yes, where/when: Have you had exposure to infectious disease within the past month? N TB? Other? Specify: Source patient, RN notes reviewed, family, old records Exam Limitations no limitations Comment prev injury rt shoulder but did not follow up and over the last week w/o trauma has pain and lower ext numbness , no rash Cardiac Chest Pain Chest pain indicative of cardiac No Timing/Duration this evening Severity moderate ALLERGIES Coded Allergies: No Known Allergies (03/10/17) Home Medications Reported Medications No Known Home Medications History Medical History General CAD? No Angina: No NV: No Hypertension? No Hyperlipidemia? No CHF? No DVT? No PE? No COPD? No Asthma? Yes Anemia? No GERD? No Gastric ulcers? No GI Bleed? No Hernia? No Thyroid Problems? No Hypothyroidism? No CVA? No Seizures? No Diabetes? No Renal Insuffiency? No End Stage Renal Disease? No UTI? No Stones? No BPH? No GB Disease: No Nephritic Syndrome? No Asplenia? No Hepatitis? No Sickle Cell Disease? No Arthritis? No Migraines? No Cataracts? No Glaucoma? No MRSA? No HIV? No TB? No Anxiety? No Depression? No Cancer? No More? No Immunization Hx DT/Tetanus Unknown Surgical Hx Previous Surgery?Y LEFT KNEE Social History Smoking Hx Smoker: Light Tobacco Smoker Tobacco: Yes Type Chew Alcohol Alcohol: Yes Drugs none Review of Systems All Other Systems Reviewed and Negative Constitutional denies fever Eyes denies drainage ENT denies: ear pain, epistaxis, throat pain. Respiratory denies cough, denies shortness of breath, denies wheezing Cardiovascular denies chest pain, denies palpitations, denies syncope Gastrointestinal denies abdominal pain, denies diarrhea, denies vomiting Genitourinary denies: dysuria, frequency, hesitancy, hematuria. Musculoskeletal see HPI, denies back pain, joint pain, denies joint swelling, denies neck pain Skin denies rash Psychiatric/Neurological see HPI, denies seizure, denies weakness, other Physical Exam Vital Signs Vital Signs Date Time Temp Pulse Resp B/P Pulse O2 O2 Flow FiO2 Ox Delivery Rate 03/10 2213 98.0 80 18 119/68 99 - WBC >12,000 or <4,000 or 10% bands? 2 or more SIRS Criteria Met? B/P:119/68 MAP:85 Creatinine >2.0? UA output<0.5ml/kg/hr for 2 hrs? Platelet count >100,000? Lactate >2.0mmol/1? INR >1.2 or PTT > than 60 sec? Evidence of Organ Dysfunction? Provider documented clinical suspician of infection? N Sepsis Criteria Count: 0 Sepsis Risk: Low Sepsis Risk General Appearance no apparent distress Eye Exam - bilateral eye PERRL, bilateral eye EOMI Ear, Nose, Throat normal ENT inspection Neck supple Respiratory Status No: respiratory distress. 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 No Departure Departure Time of Disposition 2253 Disposition DC Home or Self Care(routine) Clinical Impression Primary Impression: Paresthesia of right upper limb Secondary Impressions: Shoulder pain, right Qualifiers: Chronicity: acute Qualified Code: M25.511 - Pain in right shoulder Condition STABLE Referrals Scott Lucas MD Patient Instructions DI for Shoulder Pain Additional Instructions use meds and see pcp and ortho for follow up Discharge Counseling Counseled pt/family regarding diagnosis, medications/RX, follow up needs Prescriptions Current Visit Scripts Prednisone (Prednisone 20MG) 20 MG PO BID #12 TAB ED Critical Care Critical Care No at 7332
--- NOTE | 2017-03-10 23:00 | Emergency Room Report ---
History of Present Illness Time Seen by [id number] Presenting Problem in Triage Pt arrived:Walked Presenting Problem:PT C/O RIGHT ARM TINLGING AND NUMBNESS, INTERMITTENTLY X 1 WEEK, PT DENIES PAIN IN HIS RIGHT ARM. PT RPTS TINGLING FEELING HAS BEEN MORE PROMINENT AT NIGHT, PT STS "IT FEELS LIKE IT'S ASLEEP NO MATTER HOW I'M LYING." PT RPTS HE FELL ONTO HIS RIGHT ARM 1 YEAR AGO, WAS TOLD HE NEEDED CORTISONE INJECTIONS, BUT HE DID NOT COMPLETE THEM. PT RPTS HE'S HAD THIS PAIN INTERMITTENTLY SINCE THE FALL, HE FELL WHILE PLAYING BALL. Onset of symptoms date/time:/ or onset unknown for:MEDICAL HX UNKNOWN Treatment Prior to Arrival: TRANSPORTATION SUPERINTENDENT Provided by: Sepsis Risk Assessment: Temp: 98.0 B/P: 119/68 MAP: 85 Pulse: 80 Resp: 18 Recent fever? N Clinical Suspician of Infection? N Mental Status: 1 - Regular (Normal Baseline) Sepsis Risk:Low Sepsis Risk Have you (or family members/close friends) recently traveled outside the [place]? N If Yes, where/when: Have you had exposure to infectious disease within the past month? N TB? Other? Specify: Source patient, RN notes reviewed, family, old records Exam Limitations no limitations Comment prev injury rt shoulder but did not follow up and over the last week w/o trauma has pain and lower ext numbness , no rash Cardiac Chest Pain Chest pain indicative of cardiac No Timing/Duration this evening Severity moderate ALLERGIES Coded Allergies: No Known Allergies (03/10/17) Home Medications Reported Medications No Known Home Medications History Medical History General CAD? No Angina: No NM: No Hypertension? No Hyperlipidemia? No CHF? No DVT? No PE? No COPD? No Asthma? Yes Anemia? No GERD? No Gastric ulcers? No GI Bleed? No Hernia? No Thyroid Problems? No Hypothyroidism? No CVA? No Seizures? No Diabetes? No Renal Insuffiency? No End Stage Renal Disease? No UTI? No Stones? No BPH? No GB Disease: No Nephritic Syndrome? No Asplenia? No Hepatitis? No Sickle Cell Disease? No Arthritis? No Migraines? No Cataracts? No Glaucoma? No MRSA? No HIV? No TB? No Anxiety? No Depression? No Cancer? No More? No Immunization Hx DT/Tetanus Unknown Surgical Hx Previous Surgery?Y LEFT KNEE Social History Smoking Hx Smoker: Light Tobacco Smoker Tobacco: Yes Type Chew Alcohol Alcohol: Yes Drugs none Review of Systems All Other Systems Reviewed and Negative Constitutional denies fever Eyes denies drainage ENT denies: ear pain, epistaxis, throat pain. Respiratory denies cough, denies shortness of breath, denies wheezing Cardiovascular denies chest pain, denies palpitations, denies syncope Gastrointestinal denies abdominal pain, denies diarrhea, denies vomiting Genitourinary denies: dysuria, frequency, hesitancy, hematuria. Musculoskeletal see HPI, denies back pain, joint pain, denies joint swelling, denies neck pain Skin denies rash Psychiatric/Neurological see HPI, denies seizure, denies weakness, other Physical Exam Vital Signs Vital Signs Date Time Temp Pulse Resp B/P Pulse O2 O2 Flow FiO2 Ox Delivery Rate 03/10 2213 98.0 80 18 119/68 99 - WBC >12,000 or <4,000 or 10% bands? 2 or more SIRS Criteria Met? B/P:119/68 MAP:85 Creatinine >2.0? UA output<0.5ml/kg/hr for 2 hrs? Platelet count >100,000? Lactate >2.0mmol/1? INR >1.2 or PTT > than 60 sec? Evidence of Organ Dysfunction? Provider documented clinical suspician of infection? N Sepsis Criteria Count: 0 Sepsis Risk: Low Sepsis Risk General Appearance no apparent distress Eye Exam - bilateral eye PERRL, bilateral eye EOMI Ear, Nose, Throat normal ENT inspection Neck supple Respiratory Status No: respiratory distress. Cardiovascular regular rate/rhythm Peripheral Pulses Pulses normal Yes Extremities normal inspection, tender rt shoulder with neurovascular ok with dec rom , no def cts changes Strength 4 Upper Ext (L), 4 Upper Ext (R), 4 Lower Ext (L), 4 Lower Ext (R) Neurologic alert, clinical operations consultant II-XII nml as tested, no motor/sensory deficits Reflexes Reflexes normal No Mental status normal mood/affect Skin intact, no rash cons.w/shingles Medical Decision Making LABS/Meds/Orders Pt receiving controlled substance in ED? No Departure Departure Time of Disposition 2253 Disposition DC Home or Self Care(routine) Clinical Impression Primary Impression: Paresthesia of right upper limb Secondary Impressions: Shoulder pain, right Qualifiers: Chronicity: acute Qualified Code: M25.511 - Pain in right shoulder Condition STABLE Referrals Scott Lucas MD Patient Instructions DI for Shoulder Pain Additional Instructions use meds and see pcp and ortho for follow up Discharge Counseling Counseled pt/family regarding diagnosis, medications/RX, follow up needs Prescriptions Current Visit Scripts Prednisone (Prednisone 20MG) 20 MG PO BID #12 TAB ED Critical Care Critical Care No at [id number]
[2017-03-10 23:49] VITALS: BP 142/68
== END 2017-03-10 23:15 | disposition home or self-care (01) ==
LOC: ER 22:02
DX: R20.2 Paresthesia of skin (principal); M25.511 Pain in right shoulder